=== PATIENT | female | born 1985 | race Hispanic/Latino ===

== ENCOUNTER 2018-04-13 05:12 | Emergency (ER) | payer SELFPAY ==
[2018-04-13 06:04] LABS: BASOPHILS % (AUTO) 0.7 % (0.0-5.0); EOSINOPHILS % (AUTO) 3.9 % (0.0-8.0); HEMATOCRIT 40.4 % (36-48); LYMPHOCYTES % (AUTO) 39.4 % (21.0-51.0); MEAN CORPUSCULAR HEMOGLOBIN 29.1 pg (27.0-33.0); MEAN CORPUSCULAR HGB CONC 33.8 g/dL (32.0-36.0); MEAN CORPUSCULAR VOLUME 86.1 fL (79-99); MONOCYTES % (AUTO) 8.6 % (3.0-13.0); NEUTROPHILS % (AUTO) 47.4 % (40.0-77.0); PLATELET COUNT (AUTO) 232 K/uL (130-400); RED BLOOD CELL COUNT(AUTO) 4.69 MIL/uL (4.00-5.50); RED CELL DISTRIBUTION WIDTH 13.6 % (11.0-15.5); WHITE BLOOD COUNT (AUTO) 5.5 K/uL (4.8-10.8)
[2018-04-13 06:07] LABS: APPEARANCE,URINE Clear (CLEAR); BILIRUBIN,URINE Negative (NEGATIVE); COLOR,URINE Yellow (YELLOW); GLUCOSE, URINE (UA) Negative (NEGATIVE); KETONES,URINE Negative (NEGATIVE); LEUKOCYTE ESTERASE ,URINE Small (NEGATIVE); NITRATE,URINE Positive (NEGATIVE); OCCULT BLOOD,URINE Negative (NEGATIVE); PH,URINE 5.5 (5.0-8.0); PROTEIN,URINE Negative (NEGATIVE)
[2018-04-13 06:08] LABS: HCG,QUAL RESULT NEGATIVE (NEGATIVE)
[2018-04-13 06:09] LABS: CREATININE 0.7 mg/dL (0.5-1.5); POTASSIUM 3.4 mmol/L (3.5-5.1)
[2018-04-13 06:13] LABS: BACTERIA,URINE Many /HPF (None Seen); MUCUS,URINE Few LPF (None Seen); SQUAMOUS EPITHELIAL CELL,UR Rare /HPF (0-2)
[2018-04-13 06:15] LABS: ALBUMIN 3.8 g/dL (3.5-5.0); AMPHET/METH SCREEN,URINE NEGATIVE (NEGATIVE); BARBITURATE SCREEN, URINE NEGATIVE (NEGATIVE); BENZODIAZEPINES SCREEN,URINE NEGATIVE (NEGATIVE); BILIRUBIN,TOTAL 0.4 mg/dL (0.2-1.0); CANNABINOID SCREEN,URINE NEGATIVE (NEGATIVE); COCAINE SCREEN,URINE NEGATIVE (NEGATIVE); OPIATE SCREEN,URINE NEGATIVE (NEGATIVE); PHENCYCLIDINE SCREEN,URINE NEGATIVE (NEGATIVE); TOTAL PROTEIN, SERUM 7.7 g/dL (6.0-8.3)
[2018-04-13] MEDS ORDERED: ASPIRIN 325 MG TABLET ONE (06:55)
[2018-04-13] MEDS ORDERED: POTASSIUM BICARB/CIT AC 25 MEQ TABLET.EFF ONE (07:14)
[2018-04-13] MEDS ORDERED: KETOROLAC TROMETHAMINE 30MG/ML ONE (07:14)
== END 2018-04-13 07:40 | disposition home or self-care (01) ==
LOC: EDH 05:12
DX: R07.9 Chest pain, unspecified (principal); Z98.890 Other specified postprocedural states
CPT/HCPCS: 36415; 71045; 80053; 80305; 81001; 81025; 82550; 84484; 85025; 93005; 96374; 99285; J1885

== ENCOUNTER 2018-09-28 08:35 | Emergency (ER) | payer SELFPAY ==
[2018-09-28] MEDS ORDERED: DEXAMETHASONE SOD PHOSPHATE 10MG/ML 1ML VIAL ONE (10:22)
[2018-09-28] MEDS ORDERED: IPRATROPIUM/ALBUTEROL SULFATE 3 ML SOLUTION IH ONE (10:24)
== END 2018-09-28 11:42 | disposition home or self-care (01) ==
LOC: EDH 08:35
DX: S43.491A Other sprain of right shoulder joint, initial encounter (principal); W18.39XA Other fall on same level, initial encounter; Y93.02 Activity, running; Y92.89 Other specified places as the place of occurrence of the external cause; Y99.8 Other external cause status
CPT/HCPCS: 73030; 99284; J1100

== ENCOUNTER 2020-05-21 01:01 | Emergency (ER) | payer SELFPAY ==
[2020-05-21] MEDS ORDERED: ACETAMINOPHEN EXTRA STRENGTH 500 MG TABLET ONE (01:34)
== END 2020-05-21 02:44 | disposition home or self-care (01) ==
LOC: EDH 01:01
DX: S00.83XA Contusion of other part of head, initial encounter (principal); S60.221A Contusion of right hand, initial encounter; Z72.0 Tobacco use; W18.39XA Other fall on same level, initial encounter; Y93.89 Activity, other specified; Y92.89 Other specified places as the place of occurrence of the external cause; Y99.8 Other external cause status
CPT/HCPCS: 70450; 73130

== ENCOUNTER 2022-09-23 16:34 | Emergency (ER) | payer SELFPAY ==
[~2022-09-23] VITALS: Ht 162.6 cm; Wt 74.8 kg
[2022-09-23] MEDS ORDERED: HYDROCODONE/ACETAMINOPHEN 5/325 MG TAB PO ONE (17:00)
[2022-09-23] MEDS ORDERED: CYCLOBENZAPRINE HCL 10 MG TABLET PO ONE (17:00)
[2022-09-23] MEDS ORDERED: KETOROLAC 60 MG VIAL (30MG/ML) IM ONE (17:00)
[2022-09-23] MEDS ORDERED: NAPR-1180 PO (17:36)
[2022-09-23] MEDS ORDERED: CYCL10TA16 PO (17:36)
[2022-09-23 17:56] VITALS: BP 110/86
== END 2022-09-23 18:00 | disposition home or self-care (01) ==
LOC: EDH 16:34
DX: M54.50 Low back pain, unspecified (principal); Z98.890 Other specified postprocedural states
CPT/HCPCS: 99283; 72100; 96372; J1885

== ENCOUNTER 2024-11-24 01:33 | Emergency (ER) | payer SELFPAY ==
[~2024-11-24] VITALS: Ht 162.6 cm; Wt 77.1 kg
[~2024-11-24 01:33] MED LIST: CYCL10TA16 PO; NAPR-1180 PO
[2024-11-24 01:36] VITALS: TEMP 98.1
[2024-11-24] MEDS: LIDOCAINE 1%-EPI 1:100,000 20 ML VIAL IJ SCH (02:00)
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
[2024-11-24] MEDS: acetaMINOPHEN 500 MG TABLET PO ONE (03:29)
[2024-11-24 03:51] VITALS: BP 113/66; PULSE 98; RESP 18; O2SAT 96
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
--- NOTE | 2024-11-24 08:36 | HMCIMG ---
Exam Type: CT HEAD/BRAIN W/O CONTRAST Clinical Information: head trauma Comparison: None CT Dose Index (CTDI): 57.33 mGy Dose Length Product (DLP): 956.79 total mGy-cm Findings: The examination is unremarkable. Reyes-white matter junction is preserved. No intra or extra axial lesions or fluid collections are seen. Specifically, reyes and white matter are normal in signal characteristics with normal caliber of ventricles and periventricular cisterns with no evidence of intra or or extra-axial hemorrhage, lacunar infarct, or major territorial infarct, mass, or other abnormality. There are no infarcts. There are no hemorrhages. Periventricular white matter locations are preserved. The orbital contents and structures of the posterior fossa are intact. Impression: Normal CT of the head. This study was performed using dose reduction techniques to include automated exposure control and/or adjustment of the mA and/or kV according to patient size.
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
== END 2024-11-24 04:14 | disposition home or self-care (01) ==
LOC: EDH 01:33
DX: S01.81XA Laceration without foreign body of other part of head, initial encounter (principal); Z98.890 Other specified postprocedural states; Y04.0XXA Assault by unarmed brawl or fight, initial encounter; Y93.89 Activity, other specified; Y92.89 Other specified places as the place of occurrence of the external cause; Y99.8 Other external cause status
CPT/HCPCS: 36415; 70450; 70486; 72125; 84703; J3490